=== PATIENT | female | born 1960 | race Caucasian/White ===

== ENCOUNTER 2023-06-13 05:46 | Observation (INO) | payer SELFPAY ==
--- NOTE | 2023-06-13 06:17 | ERPHSYRPT ---
- History of Present Illness Historian: patient Exam Limitations: no limitations Patient Subjective Stated Complaint: "I've been sick for about 3 weeks but the past 3 days has been really bad. I have some pain and I feel weak. I've been vomited a lot today". Triage Nursing Assessment: Pt presents to ER with complaints of generalized weakness, vomiting, and abd pain. States pain is an intermittent ache. Skin is pink, warm, and dry. Respirations are unlabored at this time. Pt states has been sick for about 3 weeks but the past 3 days she's been vomiting so much and hav ing abd pain. Pt is alert and oriented x 3. Unsteady gait. Answers questions appropriately. Abdomen is soft but tender upon exam in upper quads. Timing/Duration: week(s) (3), intermittent, worse (Symptoms worse in the last 3 days) Quality: aching Abdominal Pain Onset Location: generalized abdomen Pain Radiation: no radiation Severity of Pain-Max: moderate Severity of Pain-Current: moderate Modifying Factors: Improves With: vomiting Associated Symptoms: loss of appetite, nausea, vomiting, weakness Previous symptoms: no prior history, no recent treatment Hx Tetanus, Diphtheria Vaccination/Date Given: No Hx Influenza Vaccination/Date Given: No Hx Pneumococcal Vaccination/Date Given: No Immunizations Up to Date: No <TOÑO OTT - Last Filed: 06/13/23 06:41> <CHIARA ACEVEDO - Last Filed: 06/13/23 10:38> - History of Present Illness Time Seen by Provider: 06/13/23 06:05 Physician History: This is a morbidly obese 63-year-old white female patient of Dr. 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 White and also sees a beauty specialist. Patient states that she has been "sick" for 3 weeks. Her symptoms have worsened in the last 3 days. Patient has generalized weakness. She has had vomiting and generalized abdominal pain. She describes the abdominal pain as intermittent achiness. Patient has multiple medical issues including hypertension, arrhythmias, coronary artery disease, rheumatoid arthritis, fibromyalgia, gastroesophageal reflux disease and anxiety. Patient has had a cholecystectomy and appendectomy in the past. (TOÑO OTT) Allergies/Adverse Reactions: celecoxib [From Celebrex] Allergy (Verified 06/13/23 06:04) cephalexin [Cephalexin] Allergy (Verified 06/13/23 06:04) cephalexin monohydrate [From Keflex] Allergy (Verified 06/13/23 06:04) ciprofloxacin [From Cipro] Allergy (Verified 06/13/23 06:04) ciprofloxacin HCl [From Cipro] Allergy (Verified 06/13/23 06:04) ibuprofen [From Motrin] Allergy (Verified 06/13/23 06:04) ketoprofen [From Oruvail] Allergy (Verified 06/13/23 06:04) ketorolac tromethamine [From Toradol] Allergy (Verified 06/13/23 06:04) levofloxacin [From Levaquin] Allergy (Verified 06/13/23 06:04) meloxicam [From Mobic] Allergy (Verified 06/13/23 06:04) methadone [Methadone] Allergy (Verified 06/13/23 06:04) methocarbamol [From Robaxin] Allergy (Verified 06/13/23 06:04) Penicillins Allergy (Verified 06/13/23 06:04) Sulfa (Sulfonamide Antibiotics) [Sulfa(Sulfonamide Antibiotics)] Allergy (Verified 06/13/23 06:04) Home Medications: ALPRAZolam [Xanax] 2 mg PO QID 08/08/16 [History] Gabapentin 400 mg PO QID 08/08/16 [History] Chlorzoxazone [Lorzone] 750 mg PO DAILY 08/25/16 [History] Metoprolol Tartrate 25 mg [Lopressor 25MG Tab] 25 mg PO BID 08/25/16 [History] Travel Risk - International Travel Have you traveled outside of the country in past 3 weeks: No - Coronavirus Screening Are you exhibiting any of the following symptoms?: Yes Symptoms: Vomiting/Diarrhea, Headaches/Body Aches/Fatigue Close contact with a COVID-19 positive Pt in past 14-21 Days: No - Vaccine Status Have you recieved a Covid-19 vaccination: No <TOÑO OTT - Last Filed: 06/13/23 06:41> - Review of Systems Constitutional: Weakness Eyes: No Symptoms Ears, Nose, & Throat: No Symptoms, Throat Swelling Cardiac: No Symptoms Abdominal/Gastrointestinal: Abdominal Pain, Nausea, Vomiting, Appetite Changes Genitourinary Symptoms: No Symptoms Musculoskeletal: Arthralgias, Myalgias Skin: No Symptoms Neurological: No Symptoms Psychological: No Symptoms Endocrine: No Symptoms Hematologic/Lymphatic: No Symptoms Immunological/Allergic: No Symptoms All Other Systems: Reviewed and Negative <TOÑO OTT - Last Filed: 06/13/23 06:41> - Past Medical History Pertinent Past Medical History: Yes Neurological History: Other ENT History: No Pertinent History Cardiac History: Arrhythmia, Coronary Artery Disease, Hypertension, Myocardial Infarction ([place]) Respiratory History: Pneumonia Endocrine Medical History: No Pertinent History Musculoskeletal History: Arthritis, Degenerative Disk Disease, Fibromyalgia, Rheumatoid Arthritis GI Medical History: GERD History: No Pertinent History Psycho-Social History: Anxiety Female Reproductive Disorders: No Pertinent History Other Medical History: cerebral aneurysm. pacemaker - Past Surgical History Past Surgical History: Yes Cardiac: Pacemaker Respiratory: Other Gastrointestinal: Cholecystectomy Genitourinary: No Pertinent History Musculoskeletal: Orthopedic Surgery Female Surgical History: Hysterectomy Other Surgical History: bilat carpal tunnel. 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 pacemaker. right elbow Apr 04 2016 - Social History Smoking Status: Former smoker How long have you smoked: 35 Exposure to second hand smoke: No Alcohol Use: None Drug Use: none Patient Lives Alone: No Significant Family History: no pertinent family hx <TOÑO OTT - Last Filed: 06/13/23 06:41> - Physical Exam General Appearance: mild distress, alert, anxiety, obese Eye Exam: PERRL/EOMI, eyes nml inspection Ears, Nose, Throat Exam: normal ENT inspection, moist mucous membranes Neck Exam: normal inspection, non-tender, supple, full range of motion Respiratory Exam: normal breath sounds, lungs clear, airway intact, No chest tenderness, No respiratory distress Cardiovascular Exam: tachycardia Gastrointestinal/Abdomen Exam: soft, normal bowel sounds, tenderness (Generalized), guarding (Generalized to palpation) Pelvic Exam: not done Rectal Exam: not done Back Exam: normal inspection, normal range of motion, No CVA tenderness, No vertebral tenderness Extremity Exam: normal inspection, normal range of motion, pelvis stable Neurologic Exam: alert, oriented x 3, cooperative, collector of aquarium specimens II-XII nml as tested, normal mood/affect, nml cerebellar function, nml station & gait, sensation nml Skin Exam: normal color, warm, dry Lymphatic Exam: No adenopathy SpO2 Interpretation: normal SpO2: 95 O2 Delivery: Room Air <TOÑO OTT - Last Filed: 06/13/23 06:41> - Nursing Vital Signs Nursing Vital Signs: Initial Vital Signs Temperature 96.6 F 06/13/23 05:53 Pulse Rate 111 H 06/13/23 05:53 Respiratory Rate 18 06/13/23 05:53 Blood Pressure 158/93 06/13/23 05:53 O2 Sat by Pulse Oximetry 95 06/13/23 05:53 Pain Scale Pain Intensity 0 - Course Nursing assessment & vital signs reviewed: Yes <TOÑO OTT - Last Filed: 06/13/23 06:41> - Course EKG Interpreted by Me: RATE (88), Sinus Rhythm, NORMAL AXIS, NORMAL INTERVALS - CT Exams Abdomen/Pelvis CT Interpretation: Tele-radiologist Report (5 mm noncalcified subpleural nodule, fatty liver, bilateral renal cysts, aortoiliac calcifications, osteopenia, spine arthritis) <CHIARA ACEVEDO - Last Filed: 06/13/23 10:38> Ordered Tests: Active Orders 24 hr Category Date Time Status IV Insertion STAT Care 06/13/23 06:29 Active ABDOMEN AND PELVIS W/0 CONTRAS [CT] Stat Exams 06/13/23 06:29 Completed AMYLASE Stat Lab 06/13/23 07:04 Completed BLOOD CULTURE Stat Lab 06/13/23 07:25 Received CBC W DIFF Stat Lab 06/13/23 07:04 Completed CMP Stat Lab 06/13/23 07:04 Completed LIPASE Stat Lab 06/13/23 07:04 Completed Lactic Acid Stat Lab 06/13/23 07:31 Completed Lactic Acid Stat Lab 06/13/23 09:44 Received MONO SCREEN Stat Lab 06/13/23 07:04 Completed Manual Differential NC Stat Lab 06/13/23 07:04 Completed TROPONIN Q4H Lab 06/13/23 07:04 Completed TROPONIN Q4H Lab 06/13/23 10:30 Ordered TROPONIN Q4H Lab 06/13/23 14:30 Ordered UA W/RFX UR CULTURE Stat Lab 06/13/23 07:39 Completed Medication Summary Generic Name Dose Route Start Last Admin Trade Name Freq PRN Reason Stop Dose Admin Sodium Chloride 1,000 mls @ 100 mls/hr 06/13/23 06:30 06/13/23 06:34 Sodium Chloride 0.9% 1000 Ml IV 07/13/23 06:29 100 mls/hr .Q10H MOHSEN Administration Magnesium Sulfate/Dextrose 100 mls @ 100 mls/hr 06/13/23 09:15 06/13/23 09:16 Magnesium 1 Gm / 100 Ml D5w IV 06/13/23 11:14 100 mls/hr Q1H MOHSEN Administration Discontinued Medications Generic Name Dose Route Start Last Admin Trade Name Freq PRN Reason Stop Dose Admin Ondansetron HCl 4 mg 06/13/23 06:29 06/13/23 06:34 Ondansetron Hcl 4 Mg/2 Ml Vial IV 06/13/23 06:30 4 mg STAT ONE Administration Ondansetron HCl Confirm 06/13/23 06:33 Ondansetron Hcl 4 Mg/2 Ml Vial Administered 06/13/23 06:34 Dose 4 mg .ROUTE .STK-MED ONE Pantoprazole Sodium 40 mg 06/13/23 06:29 06/13/23 06:34 Pantoprazole 40 Mg Vial IV 06/13/23 06:30 40 mg STAT ONE Administration Pantoprazole Sodium Confirm 06/13/23 06:33 Pantoprazole 40 Mg Vial Administered 06/13/23 06:34 Dose 40 mg IV .STK-MED ONE Potassium Chloride 40 meq 06/13/23 08:03 06/13/23 09:16 Potassium Chloride Tab 10 Meq Tab PO 06/13/23 08:04 40 meq STAT ONE Administration Potassium Chloride Confirm 06/13/23 09:15 Potassium Chloride Tab 10 Meq Tab Administered 06/13/23 09:16 Dose 40 meq PO .STK-MED ONE Lab/Rad Data: Laboratory Result Diagrams 06/13/23 07:04 06/13/23 07:04 Laboratory Results 06/13/23 06/13/23 06/13/23 Range/Units 07:40 07:39 07:31 WBC (4.0-10.5) x10^3/uL RBC (4.1-5.4) x10^6/uL Hgb (12.0-16.0) g/dL Hct (35-47) % MCV (78-100) fL MCH (26-32) pg MCHC (32-36) g/dL RDW (11.5-14.0) % Plt Count (150-450) x10^3/uL MPV (7.5-11.0) fL Segmented Neutrophils (36.0-66.0) % Band Neutrophils (0.0-2.0) % Lymphocytes (Manual) (24-44) % Monocytes (Manual) (0.0-12.0) % Hypochromia Platelet Estimate (NORMAL) RBC Morphology Sodium (137-145) mmol/L Potassium (3.5-5.1) mmol/L Chloride (98-107) mmol/L Carbon Dioxide (22-30) mmol/L Anion Gap (5-15) MEQ/L BUN (7-17) mg/dL Creatinine (0.52-1.04) mg/dL Estimated GFR ML/MIN Glucose (74-106) mg/dL Lactic Acid 3.4 H (0.4-2.0) Calcium (8.4-10.2) mg/dL Total Bilirubin (0.2-1.3) mg/dL AST (14-36) U/L ALT (0-35) U/L Alkaline Phosphatase (38-126) U/L Troponin I (0.000-0.034) ng/mL Serum Total Protein (6.3-8.2) g/dL Albumin (3.5-5.0) g/dL Amylase (30-110) U/L Lipase (23-300) U/L Urine Color Yellow (Yellow) Urine Appearance Clear (Clear) Urine pH 6.0 (4.6-8.0) Ur Specific [place] 1.020 (1.005-1.030) Urine Protein 30 (Negative) Urine Glucose (UA) Negative (Negative) mg/dL Urine Ketones >=160 A (Negative) Urine Blood Negative (Negative) Urine Nitrite Negative (Negative) Urine Bilirubin Negative (Negative) Urine Urobilinogen 0.2 (0.2) mg/dL Ur Leukocyte Esterase Negative (Negative) U Hyaline Cast (Auto) 3-5 A (0-2) /LPF Urine Microscopic RBC 0-2 (0-5) /HPF Urine Microscopic WBC 0-2 (0-5) /HPF Ur Epithelial Cells None Seen (None Seen) /HPF Urine Bacteria None Seen (None Seen) /HPF Urine Culture Reflexed NO (NO) Monoscreen (NEGATIVE) Influenza Type A Ag NEGATIVE (NEGATIVE) Influenza Type B Ag NEGATIVE (NEGATIVE) RSV (PCR) NEGATIVE (NEGATIVE) SARS-CoV-2 (PCR) NEGATIVE (NEGATIVE) 06/13/23 06/13/23 06/13/23 Range/Units 07:04 07:04 07:04 WBC (4.0-10.5) x10^3/uL RBC (4.1-5.4) x10^6/uL Hgb (12.0-16.0) g/dL Hct (35-47) % MCV (78-100) fL MCH (26-32) pg MCHC (32-36) g/dL RDW (11.5-14.0) % Plt Count (150-450) x10^3/uL MPV (7.5-11.0) fL Segmented Neutrophils (36.0-66.0) % Band Neutrophils (0.0-2.0) % Lymphocytes (Manual) (24-44) % Monocytes (Manual) (0.0-12.0) % Hypochromia Platelet Estimate (NORMAL) RBC Morphology Sodium 139 (137-145) mmol/L Potassium 3.0 L* (3.5-5.1) mmol/L Chloride 94 L (98-107) mmol/L Carbon Dioxide 15 L* (22-30) mmol/L Anion Gap 31.8 H (5-15) MEQ/L BUN 32 H (7-17) mg/dL Creatinine 1.43 H (0.52-1.04) mg/dL Estimated GFR 39.5 ML/MIN Glucose 97 (74-106) mg/dL Lactic Acid (0.4-2.0) Calcium 9.3 (8.4-10.2) mg/dL Total Bilirubin 0.70 (0.2-1.3) mg/dL AST 22 (14-36) U/L ALT 16 (0-35) U/L Alkaline Phosphatase 109 (38-126) U/L Troponin I < 0.012 (0.000-0.034) ng/mL Serum Total Protein 7.8 (6.3-8.2) g/dL Albumin 4.6 (3.5-5.0) g/dL Amylase 87 (30-110) U/L Lipase 229 (23-300) U/L Urine Color (Yellow) Urine Appearance (Clear) Urine pH (4.6-8.0) Ur Specific [place] (1.005-1.030) Urine Protein (Negative) Urine Glucose (UA) (Negative) mg/dL Urine Ketones (Negative) Urine Blood (Negative) Urine Nitrite (Negative) Urine Bilirubin (Negative) Urine Urobilinogen (0.2) mg/dL Ur Leukocyte Esterase (Negative) U Hyaline Cast (Auto) (0-2) /LPF Urine Microscopic RBC (0-5) /HPF Urine Microscopic WBC (0-5) /HPF Ur Epithelial Cells (None Seen) /HPF Urine Bacteria (None Seen) /HPF Urine Culture Reflexed (NO) Monoscreen NEGATIVE (NEGATIVE) Influenza Type A Ag (NEGATIVE) Influenza Type B Ag (NEGATIVE) RSV (PCR) (NEGATIVE) SARS-CoV-2 (PCR) (NEGATIVE) 06/13/23 Range/Units 07:04 WBC 17.3 H (4.0-10.5) x10^3/uL RBC 5.31 (4.1-5.4) x10^6/uL Hgb 13.7 (12.0-16.0) g/dL Hct 46.0 (35-47) % MCV 86.6 (78-100) fL MCH 25.8 L (26-32) pg MCHC 29.8 L (32-36) g/dL RDW 16.2 H (11.5-14.0) % Plt Count 483 H (150-450) x10^3/uL MPV 9.7 (7.5-11.0) fL Segmented Neutrophils 89 H (36.0-66.0) % Band Neutrophils 1 (0.0-2.0) % Lymphocytes (Manual) 8 L (24-44) % Monocytes (Manual) 2 (0.0-12.0) % Hypochromia 1+ Platelet Estimate NORMAL (NORMAL) RBC Morphology NORMAL Sodium (137-145) mmol/L Potassium (3.5-5.1) mmol/L Chloride (98-107) mmol/L Carbon Dioxide (22-30) mmol/L Anion Gap (5-15) MEQ/L BUN (7-17) mg/dL Creatinine (0.52-1.04) mg/dL Estimated GFR ML/MIN Glucose (74-106) mg/dL Lactic Acid (0.4-2.0) Calcium (8.4-10.2) mg/dL Total Bilirubin (0.2-1.3) mg/dL AST (14-36) U/L ALT (0-35) U/L Alkaline Phosphatase (38-126) U/L Troponin I (0.000-0.034) ng/mL Serum Total Protein (6.3-8.2) g/dL Albumin (3.5-5.0) g/dL Amylase (30-110) U/L Lipase (23-300) U/L Urine Color (Yellow) Urine Appearance (Clear) Urine pH (4.6-8.0) Ur Specific [place] (1.005-1.030) Urine Protein (Negative) Urine Glucose (UA) (Negative) mg/dL Urine Ketones (Negative) Urine Blood (Negative) Urine Nitrite (Negative) Urine Bilirubin (Negative) Urine Urobilinogen (0.2) mg/dL Ur Leukocyte Esterase (Negative) U Hyaline Cast (Auto) (0-2) /LPF Urine Microscopic RBC (0-5) /HPF Urine Microscopic WBC (0-5) /HPF Ur Epithelial Cells (None Seen) /HPF Urine Bacteria (None Seen) /HPF Urine Culture Reflexed (NO) Monoscreen (NEGATIVE) Influenza Type A Ag (NEGATIVE) Influenza Type B Ag (NEGATIVE) RSV (PCR) (NEGATIVE) SARS-CoV-2 (PCR) (NEGATIVE) <TOÑO OTT - Last Filed: 06/13/23 06:41> - Progress Progress: improved Will see patient in: hospital (observation) Counseled pt/family regarding: lab results, diagnosis, rad results <CHIARA ACEVEDO - Last Filed: 06/13/23 10:38> - Progress Progress Note: 06/13/23 06:26 This patient's medical issue is 1 of moderate complexity. The level complexity in the work-up performed is based on review of the patient's past medical history, review the patient's medication list, review of the patient's drug allergy list, history of present illness and physical findings on examination. Work-up includes placement of intravenous line, infusion normal saline solution, infusion of Protonix, infusion of Zofran, twelve-lead EKG, troponin level, CBC, CMP, amylase and lipase level, and CT scan of the abdomen pelvis without contrast. We will also order COVID swabs/viral swabs and order a Monospot test. 06/13/23 06:28 06/13/23 06:41 Transfer of care this patient will occur at 7 AM at shift change. Dr. Chiara Acevedo will assume care of this patient. I will advise him on the patient's past medical history, presenting complaint and the work-up results that are pending. He will make final disposition. (TOÑO OTT) Patient initially seen by Dr. Ott. Patient endorsed to Dr. Acevedo at approximately [address] Acevedo advised to follow-up on pending lab studies and imaging Patient is a 63-year-old female presents to our ED for evaluation of nausea vomiting x3 days. Patient complains of generalized weakness and abdominal pain. CT scan of the abdomen pelvis reveals a 5 mm noncalcified subpleural nodule, fatty liver bilateral renal cysts aortoiliac calcifications osteopenia and spine arthritis. CBC reveals a leukocytosis of 17,000. The cause of the leukocytosis is not yet clear. Patient has no other manifestations of infection. She is not febrile. No significant abnormalities observed on CT abdomen pelvis. Patient has a thrombocytosis of 483. Potassium is 3.0. Hypokalemia likely secondary to vomiting. Acute renal injury observed. BUN 32 creatinine 1.43. This is significantly off of patient's baseline. Anion gap acidosis observed with a bicarb of 15. Previous physician ordered blood cultures,. Results pending. COVID test negative. Lipase within normal limits. Monospot negative. Urinalysis negative for urinary tract infection. Specific gravity elevated. This is in line with dehydration. Again likely stemming from protracted vomiting. Patient received IV fluids and Zofran. Nausea vomiting resolved. Patient tolerated oral potassium replacement. Magnesium IV administered. An order for IV potassium was entered. Staff currently preparing IV infusion of potassium. Patient will require hospitalization. She states she is too weak to go home. In light of our objective findings we can justify admission for further evaluation and treatment. Complexity of problems addressed is moderate acute complicated No critical care time Complex of data reviewed and analyzed extensive. Test ordered reviewed and analyzed. Clinical correlation made between laboratory findings/ imaging studies and history and physical exam. Case and plan of care discussed with hospitalist. Hospitalist accepts admission to observation. Risk of complication and or risk morbidity/mortality of patient management is high. Patient will require hospitalization for further evaluation and treatme nt. Patient will be admitted. Patient agrees to admission to [facility] for further evaluation and treatment. Vital stable. Time spent to admit patient is approximately 15 to 20 minutes. Plan of care established for shared decision making. at bedside. They voiced no other complaints or concerns at this time. Portions of this note were created with voice recognition technology. There may be grammatical, spelling, punctuation or sound alike errors 06/13/23 09:37 accepts admission at 10:36 AM. 06/13/23 10:37 (CHIARA ACEVEDO) Medical Desision Making - Independent Historian Additional History obtained from: Family - Diagnostic Testing Diagnostic test were ordered, analyzed, and reviewed by me: No - Risk of complications The pt has a mod risk of morbidity or mortality based on: Need for prescription drug management <TOÑO OTT - Last Filed: 06/13/23 06:41> <TOÑO OTT - Last Filed: 06/13/23 06:41> - Departure Departure Disposition: Observation Critical Care Time: No <CHIARA ACEVEDO - Last Filed: 06/13/23 10:38> - Departure Clinical Impression: Leukocytosis, Thrombocytosis, Hypokalemia, Metabolic acidosis, High anion gap metabolic acidosis, Acute renal injury, Dehydration, Ketonuria, Lung nodule, Fatty liver, Bilateral renal cysts, Aortoiliac calcifications, Osteopenia, Arthritis of spine, Vomiting, Generalized weakness, Abdominal pain Condition: Stable Referrals: PRICE SIMS [Primary Care Provider] - Follow up/PCP as directed
[2023-06-13] MEDS ORDERED: Zofran 4 MG/2 ML VIAL IV ONE (06:29)
[2023-06-13] MEDS ORDERED: PROTONIX 40 MG IV IV ONE ×2 (06:29→06:33)
[2023-06-13] MEDS ORDERED: Sodium Chloride 0.9% 1000 ML 1,000 ML IV SCH (06:30)
[2023-06-13] MEDS ORDERED: Zofran 4 MG/2 ML VIAL ONE (06:33)
[2023-06-13 07:17] LABS: Hemoglobin 13.7 g/dL (12.0-16.0); Mean Cell Volume 86.6 fL (78-100); Mean Corpuscular Hemoglobin 25.8 pg (26-32); Mean Corpuscular Hgb Concent. 29.8 g/dL (32-36); Mean Platelet Volume 9.7 fL (7.5-11.0); Platelet Count 483 x10^3/uL (150-450); Red Blood Count 5.31 x10^6/uL (4.1-5.4); Red Cell Distribution Width 16.2 % (11.5-14.0); White Blood Count 17.3 x10^3/uL (4.0-10.5)
[2023-06-13 07:54] LABS: ALBUMIN 4.6 g/dL (3.5-5.0); ANION GAP 31.8 MEQ/L (5-15); BILIRUBIN,TOTAL 0.7 mg/dL (0.2-1.3); Calcium 9.3 mg/dL (8.4-10.2); Creatinine 1 1.43 mg/dL (0.52-1.04); EST GLOMERULAR FILTRATION RATE 39.5 ML/MIN; Total Protein 7.8 g/dL (6.3-8.2)
[2023-06-13 08:03] LABS: BAND 1 % (0.0-2.0); Hypochromia 1+; Lymphocytes 8 % (24-44); Monocyte 2 % (0.0-12.0); Neutrophils 89 % (36.0-66.0); Platelet Estimate NORMAL (NORMAL); Total Cells Counted 100
[2023-06-13] MEDS ORDERED: Klor Con PO ONE ×3 (08:03→17:50)
[2023-06-13 08:04] LABS: Appearance Clear (Clear); Bacteria None Seen /HPF (None Seen); Bilirubin Negative (Negative); Blood Negative (Negative); Epithelial Cells None Seen /HPF (None Seen); Glucose, Urine Negative (Negative); Ketones >=160 (Negative); Leukocyte Esterase Negative (Negative); Nitrite Negative (Negative); Protein,Urine Dip 30 (Negative); RBC 0-2 /HPF (0-5); Urobilinogen 0.2 mg/dL (0.2); WBC 0-2 /HPF (0-5)
[2023-06-13 08:18] LABS: INFLUENZA A NEGATIVE (NEGATIVE); INFLUENZA B NEGATIVE (NEGATIVE); RESPIRATORY SYNCTIAL VIRUS NEGATIVE (NEGATIVE); SARS-CoV-2 Xpert Express NEGATIVE (NEGATIVE)
[2023-06-13 08:24] LABS: ADD URINE CULTURE? NO (NO)
--- NOTE | 2023-06-13 08:47 | XRAY ---
Indication: Abdomen pain and vomiting. Multiple contiguous axial images obtained through the abdomen and pelvis without contrast. Comparison: CTA abdomen/pelvis November 13, 2020 Study slightly degraded by respiration artifact. Left lower lobe demonstrates stable 5 mm noncalcified subpleural nodule favored to be benign given stability over the years. No infiltrate or effusion. Heart not enlarged with stable pacemaker lead. Noncontrasted stomach and bowel loops appear nonobstructed. Appendix not seen. Previous cholecystectomy and hysterectomy. Stable fatty liver and tiny bilateral renal cysts. No free fluid/air. Remaining liver, pancreas, spleen, adrenal glands, kidneys, ureters, and bladder are unremarkable for noncontrast exam. Moderate scattered aortoiliac calcifications without AAA. Osseous structures intact with osteopenia and mild/moderate degenerative changes throughout the visualized spine greatest at L4-L5. Impression: 1. Respiration artifact. 2. Again chronic findings including benign left lower lobe noncalcified micronodule, bilateral renal cysts, fatty liver, chronic bony findings, and arteriosclerotic disease. 3. No new or acute intra-abdominal/pelvic abnormalities on this noncontrast exam.
[2023-06-13] MEDS: Magnesium 1 Gm / 100 Ml D5W*** 100 ML IV SCH ×2 (09:16→11:31)
[2023-06-13] MEDS ORDERED: Xylocaine-Mpf 2% 5 Ml Vial ONE (11:35)
--- NOTE | 2023-06-13 13:02 | PCM.HP ---
History of Present Illness - Chief Complaint Chief Complaint: N/V Date: 06/13/23 History of Present Illness: is a 63 year old female. Patient has multiple medical issues including arrhythmias, coronary artery disease, pacemaker, MD rheumatoid arthritis, fibrom yalgia, gastroesophageal reflux disease, and anxiety. Patient has had a cholecystectomy and appendectomy in the past. This is a morbidly obese 63-year-old white female patient of Dr. French Wolf who also sees assistant manager pt Dr. White and also sees a rewinder operator helper. Patient states that she has been "sick" for 3 weeks. Her symptoms have worsened in the last 3 days. Patient has generalized weakness. She has had vomiting and generalized abdominal pain. She has chronic diarrhea, denies blood or mucus in stools. She describes the abdominal pain as intermittent achiness from vomiting this morning. CT abd pelvis showed no acute findings. Lactic acid elevated in ER IV fluids gave- will recheck. Continue IV fluids. Add zofran for nausea. She has acute on chronic renal failure. She denies CP, SOB. - Review of Systems Constitutional: No Fever, No Chills Eyes: No Symptoms Ears, Nose, & Throat: No Symptoms Respiratory: No Cough, No Short Of Breath Cardiac: No Chest Pain, No Edema, No Syncope Abdominal/Gastrointestinal: Abdominal Pain, Nausea, Vomiting, Diarrhea Genitourinary Symptoms: No Dysuria Musculoskeletal: No Back Pain, No Neck Pain Skin: Dryness, No Rash Neurological: No Dizziness, No Focal Weakness, No Sensory Changes Psychological: No Symptoms Endocrine: No Symptoms Hematologic/Lymphatic: No Symptoms Immunological/Allergic: No Symptoms Medications & Allergies Home Medications: Home Medication List ALPRAZolam [Xanax] 2 mg PO QID 08/08/16 [History Confirmed 06/13/23] Gabapentin 400 mg PO QID 08/08/16 [History Confirmed 06/13/23] Chlorzoxazone [Lorzone] 750 mg PO DAILY 08/25/16 [History Confirmed 06/13/23] Metoprolol Tartrate 25 mg [Lopressor 25MG Tab] 25 mg PO BID 08/25/16 [History Confirmed 06/13/23] Allergies/Adverse Reactions: Allergies Allergy/AdvReac Type Severity Reaction Status Date / Time celecoxib [From Celebrex] Allergy Verified 06/13/23 06:04 cephalexin [Cephalexin] Allergy Verified 06/13/23 06:04 cephalexin monohydrate Allergy Verified 06/13/23 06:04 [From Keflex] ciprofloxacin [From Cipro] Allergy Verified 06/13/23 06:04 ciprofloxacin HCl Allergy Verified 06/13/23 06:04 [From Cipro] ibuprofen [From Motrin] Allergy Verified 06/13/23 06:04 ketoprofen [From Oruvail] Allergy Verified 06/13/23 06:04 ketorolac tromethamine Allergy Verified 06/13/23 06:04 [From Toradol] levofloxacin [From Levaquin] Allergy Verified 06/13/23 06:04 meloxicam [From Mobic] Allergy Verified 06/13/23 06:04 methadone [Methadone] Allergy Verified 06/13/23 06:04 methocarbamol [From Robaxin] Allergy Verified 06/13/23 06:04 Penicillins Allergy Verified 06/13/23 06:04 Sulfa (Sulfonamide Allergy Verified 06/13/23 06:04 Antibiotics) [Sulfa(Sulfonamide Antibiotics)] - Past Medical History Past Medical History: Yes Neurological History: Other ENT History: No Pertinent History Cardiac History: Arrhythmia, Coronary Artery Disease, Hypertension, Myocardial Infarction (MD) Respiratory History: Pneumonia Endocrine Medical History: No Pertinent History Musculoskelatal History: Arthritis, Degenerative Disk Disease, Fibromyalgia, Rheumatoid Arthritis GI Medical History: GERD History: No Pertinent History Pyscho-Social History: Anxiety Reproductive Disorders: No Pertinent History Comment: cerebral aneurysm. pacemaker - Past Surgical History Past Surgical History: Yes Cardiac History: Pacemaker Respiratory Surgery: Other GI Surgical History: Cholecystectomy Genitourinary Surgical Hx: No Pertinent History Musculskeletal Surgical Hx: Orthopedic Surgery Female Surgical History: Hysterectomy Other Surgical History: bilat carpal tunnel. 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 pacemaker. right elbow Apr 04 2016 - Social History Smoking Status: Former smoker How long have you smoked: 35 Exposure to second hand smoke: No Alcohol: Daily Drug Use: none Significant Family History: no pertinent family hx - Physical Exam Vital Signs: Vital Signs - 24 hr Temp Pulse Resp BP BP Pulse Ox 06/13/23 09:00 17 111/51 98 06/13/23 08:00 100/57 98 06/13/23 07:42 87 18 127/85 94 L 10/10/23 07:31 127/85 97 06/13/23 06:42 95 06/13/23 05:53 96.6 F 111 H 18 158/93 95 General Appearance: no apparent distress, alert Neurologic Exam: alert, oriented x 3, cooperative, normal mood/affect, nml cerebellar function, nml station & gait, sensation nml, No motor deficits Eye Exam: PERRL/EOMI, eyes nml inspection Ears, Nose, Throat Exam: normal ENT inspection, TMs normal, pharynx normal, moist mucous membranes Neck Exam: normal inspection, non-tender, supple, full range of motion Respiratory Exam: normal breath sounds, lungs clear, No respiratory distress Cardiovascular Exam: regular rate/rhythm, normal heart sounds, normal peripheral pulses Gastrointestinal/Abdomen Exam: soft, normal bowel sounds, tenderness (LUQ with palpation), No mass Back Exam: normal inspection, normal range of motion, No CVA tenderness, No vertebral tenderness Extremity Exam: normal inspection, normal range of motion, pelvis stable Skin Exam: normal color, warm, dry, No rash Lymphatic Exam: No adenopathy Results - Labs Lab/Micro Results: Lab Results-Last 24 Hours 06/13/23 06/13/23 06/13/23 Range/Units 07:04 07:04 07:04 WBC 17.3 H (4.0-10.5) x10^3/uL RBC 5.31 (4.1-5.4) x10^6/uL Hgb 13.7 (12.0-16.0) g/dL Hct 46.0 (35-47) % MCV 86.6 (78-100) fL MCH 25.8 L (26-32) pg MCHC 29.8 L (32-36) g/dL RDW 16.2 H (11.5-14.0) % Plt Count 483 H (150-450) x10^3/uL MPV 9.7 (7.5-11.0) fL Segmented Neutrophils 89 H (36.0-66.0) % Band Neutrophils 1 (0.0-2.0) % Lymphocytes (Manual) 8 L (24-44) % Monocytes (Manual) 2 (0.0-12.0) % Hypochromia 1+ Platelet Estimate NORMAL (NORMAL) RBC Morphology NORMAL Sodium 139 (137-145) mmol/L Potassium 3.0 L* (3.5-5.1) mmol/L Chloride 94 L (98-107) mmol/L Carbon Dioxide 15 L* (22-30) mmol/L Anion Gap 31.8 H (5-15) MEQ/L BUN 32 H (7-17) mg/dL Creatinine 1.43 H (0.52-1.04) mg/dL Estimated GFR 39.5 ML/MIN Glucose 97 (74-106) mg/dL Lactic Acid (0.4-2.0) Calcium 9.3 (8.4-10.2) mg/dL Total Bilirubin 0.70 (0.2-1.3) mg/dL AST 22 (14-36) U/L ALT 16 (0-35) U/L Alkaline Phosphatase 109 (38-126) U/L Troponin I < 0.012 (0.000-0.034) ng/mL Serum Total Protein 7.8 (6.3-8.2) g/dL Albumin 4.6 (3.5-5.0) g/dL Amylase 87 (30-110) U/L Lipase 229 (23-300) U/L Urine Color (Yellow) Urine Appearance (Clear) Urine pH (4.6-8.0) Ur Specific Cash (1.005-1.030) Urine Protein (Negative) Urine Glucose (UA) (Negative) mg/dL Urine Ketones (Negative) Urine Blood (Negative) Urine Nitrite (Negative) Urine Bilirubin (Negative) Urine Urobilinogen (0.2) mg/dL Ur Leukocyte Esterase (Negative) U Hyaline Cast (Auto) (0-2) /LPF Urine Microscopic RBC (0-5) /HPF Urine Microscopic WBC (0-5) /HPF Ur Epithelial Cells (None Seen) /HPF Urine Bacteria (None Seen) /HPF Urine Culture Reflexed (NO) Monoscreen (NEGATIVE) Influenza Type A Ag (NEGATIVE) Influenza Type B Ag (NEGATIVE) RSV (PCR) (NEGATIVE) SARS-CoV-2 (PCR) (NEGATIVE) 06/13/23 06/13/23 06/13/23 Range/Units 07:04 07:31 07:39 WBC (4.0-10.5) x10^3/uL RBC (4.1-5.4) x10^6/uL Hgb (12.0-16.0) g/dL Hct (35-47) % MCV (78-100) fL MCH (26-32) pg MCHC (32-36) g/dL RDW (11.5-14.0) % Plt Count (150-450) x10^3/uL MPV (7.5-11.0) fL Segmented Neutrophils (36.0-66.0) % Band Neutrophils (0.0-2.0) % Lymphocytes (Manual) (24-44) % Monocytes (Manual) (0.0-12.0) % Hypochromia Platelet Estimate (NORMAL) RBC Morphology Sodium (137-145) mmol/L Potassium (3.5-5.1) mmol/L Chloride (98-107) mmol/L Carbon Dioxide (22-30) mmol/L Anion Gap (5-15) MEQ/L BUN (7-17) mg/dL Creatinine (0.52-1.04) mg/dL Estimated GFR ML/MIN Glucose (74-106) mg/dL Lactic Acid 3.4 H (0.4-2.0) Calcium (8.4-10.2) mg/dL Total Bilirubin (0.2-1.3) mg/dL AST (14-36) U/L ALT (0-35) U/L Alkaline Phosphatase (38-126) U/L Troponin I (0.000-0.034) ng/mL Serum Total Protein (6.3-8.2) g/dL Albumin (3.5-5.0) g/dL Amylase (30-110) U/L Lipase (23-300) U/L Urine Color Yellow (Yellow) Urine Appearance Clear (Clear) Urine pH 6.0 (4.6-8.0) Ur Specific Cash 1.020 (1.005-1.030) Urine Protein 30 (Negative) Urine Glucose (UA) Negative (Negative) mg/dL Urine Ketones >=160 A (Negative) Urine Blood Negative (Negative) Urine Nitrite Negative (Negative) Urine Bilirubin Negative (Negative) Urine Urobilinogen 0.2 (0.2) mg/dL Ur Leukocyte Esterase Negative (Negative) U Hyaline Cast (Auto) 3-5 A (0-2) /LPF Urine Microscopic RBC 0-2 (0-5) /HPF Urine Microscopic WBC 0-2 (0-5) /HPF Ur Epithelial Cells None Seen (None Seen) /HPF Urine Bacteria None Seen (None Seen) /HPF Urine Culture Reflexed NO (NO) Monoscreen NEGATIVE (NEGATIVE) Influenza Type A Ag (NEGATIVE) Influenza Type B Ag (NEGATIVE) RSV (PCR) (NEGATIVE) SARS-CoV-2 (PCR) (NEGATIVE) 06/13/23 06/13/23 Range/Units 07:40 09:44 WBC (4.0-10.5) x10^3/uL RBC (4.1-5.4) x10^6/uL Hgb (12.0-16.0) g/dL Hct (35-47) % MCV (78-100) fL MCH (26-32) pg MCHC (32-36) g/dL RDW (11.5-14.0) % Plt Count (150-450) x10^3/uL MPV (7.5-11.0) fL Segmented Neutrophils (36.0-66.0) % Band Neutrophils (0.0-2.0) % Lymphocytes (Manual) (24-44) % Monocytes (Manual) (0.0-12.0) % Hypochromia Platelet Estimate (NORMAL) RBC Morphology Sodium (137-145) mmol/L Potassium (3.5-5.1) mmol/L Chloride (98-107) mmol/L Carbon Dioxide (22-30) mmol/L Anion Gap (5-15) MEQ/L BUN (7-17) mg/dL Creatinine (0.52-1.04) mg/dL Estimated GFR ML/MIN Glucose (74-106) mg/dL Lactic Acid 2.6 H (0.4-2.0) Calcium (8.4-10.2) mg/dL Total Bilirubin (0.2-1.3) mg/dL AST (14-36) U/L ALT (0-35) U/L Alkaline Phosphatase (38-126) U/L Troponin I (0.000-0.034) ng/mL Serum Total Protein (6.3-8.2) g/dL Albumin (3.5-5.0) g/dL Amylase (30-110) U/L Lipase (23-300) U/L Urine Color (Yellow) Urine Appearance (Clear) Urine pH (4.6-8.0) Ur Specific Cash (1.005-1.030) Urine Protein (Negative) Urine Glucose (UA) (Negative) mg/dL Urine Ketones (Negative) Urine Blood (Negative) Urine Nitrite (Negative) Urine Bilirubin (Negative) Urine Urobilinogen (0.2) mg/dL Ur Leukocyte Esterase (Negative) U Hyaline Cast (Auto) (0-2) /LPF Urine Microscopic RBC (0-5) /HPF Urine Microscopic WBC (0-5) /HPF Ur Epithelial Cells (None Seen) /HPF Urine Bacteria (None Seen) /HPF Urine Culture Reflexed (NO) Monoscreen (NEGATIVE) Influenza Type A Ag NEGATIVE (NEGATIVE) Influenza Type B Ag NEGATIVE (NEGATIVE) RSV (PCR) NEGATIVE (NEGATIVE) SARS-CoV-2 (PCR) NEGATIVE (NEGATIVE) - Radiology Impressions Radiology Exams & Impressions: Radiology Procedures Category Date Time Status ABDOMEN AND PELVIS W/0 CONTRAS [CT] Stat Exams 06/13/23 06:29 Completed Assessment/Plan (1) Lactic acidosis Current Visit: Yes Status: Acute Assessment & Plan: - R/T N/V - IV fluids - LA @ 0731 3.4 - LA @ 0944 2.6 - LA @ 1249 1.9- resolved Code(s): E87.20 - ACIDOSIS, UNSPECIFIED (2) Nausea & vomiting Current Visit: Yes Status: Acute Assessment & Plan: - Zofran PRN - Clear liquid diet Code(s): R11.2 - NAUSEA WITH VOMITING, UNSPECIFIED (3) Dehydration Current Visit: Yes Status: Acute Assessment & Plan: - NS @ 150ml/hr Code(s): E86.0 - DEHYDRATION (4) Chronic diarrhea Current Visit: Yes Status: Acute Assessment & Plan: - Will need to f/u OP for Colonoscopy Code(s): K52.9 - NONINFECTIVE GASTROENTERITIS AND COLITIS, UNSPECIFIED (5) Anxiety Current Visit: Yes Status: Acute Assessment & Plan: - Cont home med Code(s): F41.9 - ANXIETY DISORDER, UNSPECIFIED (6) Abdominal pain Current Visit: Yes Status: Acute Assessment & Plan: -Pt explained this from vomiting - CT abd/pelvis: 06/13 1. Respiration artifact. 2. Again chronic findings including benign left lower lobe noncalcified micronodule, bilateral renal cysts, fatty liver, chronic bony findings, and arteriosclerotic disease. 3. No new or acute intra-abdominal/pelvic abnormalities on this noncontrast exam. - Tylenol for pain Code(s): R10.9 - UNSPECIFIED ABDOMINAL PAIN (7) Leukocytosis Current Visit: Yes Status: Acute Assessment & Plan: - WBC 17.3- Trend - may be acute reaction Code(s): D72.829 - ELEVATED WHITE BLOOD CELL COUNT, UNSPECIFIED (8) Hypokalemia Current Visit: No Status: Resolved Assessment & Plan: - K+ 3.0- replaced in ER - IP lab pending Code(s): E87.6 - HYPOKALEMIA (9) Acute on chronic renal failure Current Visit: Yes Status: Acute Assessment & Plan: - 2:2 N/V/D -IVF - Creat 1.43, BL 1.10 - GFR 39.5, BL 53 - BUN 32 - trend labs VTE: SCD's PPI: Pantoprazole Next of Kin: D/C plan: tomorrow Code(s): N17.9 - ACUTE KIDNEY FAILURE, UNSPECIFIED; N18.9 - CHRONIC KIDNEY DISEASE, UNSPECIFIED
[2023-06-13] MEDS ORDERED: Zofran 4 MG/2 ML VIAL IV PRN (13:32)
[2023-06-13] MEDS ORDERED: TYLENOL 325 MG PO PRN (13:44)
[2023-06-13] MEDS ORDERED: XANAX 1 MG PO SCH (14:00)
[2023-06-13] MEDS ORDERED: ALPRAZOLAM 2 MG PO SCH (17:00)
[2023-06-13] MEDS ORDERED: XANAX 1 MG PO PRN (17:48)
[2023-06-13] MEDS: Sodium Chloride 0.9% 1000 ML 1,000 ML IV SCH ×2 (19:24→19:28)
[2023-06-13] MEDS ORDERED: Merrem IV ONE (21:07)
[2023-06-13] MEDS ORDERED: ZOCOR 20MG ONE (21:07)
[2023-06-13] MEDS ORDERED: DESYREL 50 MG ONE (21:07)
[2023-06-13] MEDS ORDERED: Sodium Chloride 100ML MINI-BAG PLUS 100 ML IV ONE (21:08)
[2023-06-13] MEDS: Protonix 20MG Tablet PO SCH (21:14)
[2023-06-13] MEDS: Neurontin PO SCH (21:21)
[2023-06-13] MEDS: Merrem 1 GM in Sodium Chloride 100ML MINI-BAG PLUS 100 ML IV SCH (21:23)
[2023-06-13] MEDS: NON-FORMULARY ITEM (Atorvastatin Calcium [Atorvastatin Calcium] 20 MG Tablet) PO SCH (21:24)
[2023-06-13] MEDS: NON-FORMULARY ITEM (Trazodone Hcl [Trazodone Hcl] 100 MG Tablet) PO SCH (21:24)
[2023-06-13] MEDS: ZOCOR 20MG PO SCH (22:00)
[2023-06-13] MEDS: DESYREL 50 MG PO SCH (22:03)
[2023-06-14] MEDS: Sodium Chloride 0.9% 1000 ML 1,000 ML IV SCH ×3 (02:44→20:32)
[2023-06-14] MEDS: DESYREL 50 MG PO SCH ×2 (05:47→21:32)
[2023-06-14] MEDS: ZOCOR 20MG PO SCH ×2 (05:48→21:47)
[2023-06-14] MEDS ORDERED: VANCOMYCIN 1.5 GRAM/300 ML BAG 1.5 GM/300 ML PIGGYBACK IV ONE (06:15)
[2023-06-14] MEDS: NON-FORMULARY ITEM (Trazodone Hcl [Trazodone Hcl] 100 MG Tablet) PO SCH (06:20)
[2023-06-14] MEDS: NON-FORMULARY ITEM (Atorvastatin Calcium [Atorvastatin Calcium] 20 MG Tablet) PO SCH (06:20)
[2023-06-14 07:54] LABS: Hematocrit 34.5 % (35-47); Hemoglobin 10.4 g/dL (12.0-16.0); Mean Cell Volume 87.3 fL (78-100); Mean Corpuscular Hemoglobin 26.3 pg (26-32); Mean Corpuscular Hgb Concent. 30.1 g/dL (32-36); Mean Platelet Volume 9.5 fL (7.5-11.0); Platelet Count 303 x10^3/uL (150-450); Red Blood Count 3.95 x10^6/uL (4.1-5.4); Red Cell Distribution Width 15.9 % (11.5-14.0); White Blood Count 12.3 x10^3/uL (4.0-10.5)
[2023-06-14 08:12] LABS: ALBUMIN 2.9 g/dL (3.5-5.0); ANION GAP 16.5 MEQ/L (5-15); BILIRUBIN,TOTAL 0.3 mg/dL (0.2-1.3); Calcium 7.4 mg/dL (8.4-10.2); Creatinine 1 1.09 mg/dL (0.52-1.04); EST GLOMERULAR FILTRATION RATE 54.1 ML/MIN; MAGNESIUM 2.1 mg/dL (1.6-2.3); Potassium 3.7 mmol/L (3.5-5.1); Total Protein 5.4 g/dL (6.3-8.2)
[2023-06-14] MEDS ORDERED: PHARMACY DOSING REQUIRED: VANCOMYCIN IV SCH (08:30)
--- NOTE | 2023-06-14 09:59 | PCM.NOTE ---
Date and Time: 06/14/23 0953 Subjective Assessment: 06/13/23 is a 63 year old female. Patient has multiple medical issues including arrhythmias, coronary artery disease, pacemaker, MS rheumatoid arthritis, fibromyalgia, gastroesophageal reflux disease, and anxiety. Patient has had a cholecystectomy and appendectomy in the past. This is a morbidly obese 63-year-old white female patient of Dr. French Wolf who also sees configuration engineer Dr. White and also sees a billing department supervisor. Patient states that she has been "sick" for 3 weeks. Her symptoms have worsened in the last 3 days. Patient has generalized weakness. She has had vomiting and generalized abdominal pain. She has chronic diarrhea, denies blood or mucus in stools. She describes the abdominal pain as intermittent achiness from vomiting this morning. CT abd pelvis showed no acute findings. Lactic acid elevated in ER IV fluids gave- will recheck. Continue IV fluids. Add zofran for nausea. She has acute on chronic renal failure. She denies CP, SOB. 06/14/23 Pt resting in bed. She had some N/V overnight. She is feeling better this morning and denies nausea. She was able to eat some jello this morning without vomiting. HORACIO improved. Hypokalemia resolved. Lactic acidosis resolved. She was having difficulty urinating last night and a gibson was placed with 350 out. She is requesting this to be removed today. D/C order placed. Leukocytosis has improved. one blood culture came back with gram negative rods. The other is negative. Appears to be contamination but Vancomycin and Merrem started by validation specialist physician. Stool culture and c-dif sent for further eval of chronic diarrhea. Pt denies CP, SOB, abd. pain, N/V today. Pt has no insurance so if she needs to be sent home on meds they will need to be affordable. Case management aware. - Review of Systems Constitutional: No Fever, No Chills Eyes: No Symptoms Ears, Nose, & Throat: No Symptoms Respiratory: No Cough, No Short Of Breath Cardiac: No Chest Pain, No Edema, No Syncope Abdominal/Gastrointestinal: No Abdominal Pain, No Nausea, No Vomiting, No Diarrhea Genitourinary Symptoms: No Dysuria Musculoskeletal: No Back Pain, No Neck Pain Skin: No Rash Neurological: No Dizziness, No Focal Weakness, No Sensory Changes Psychological: No Symptoms Endocrine: No Symptoms Hematologic/Lymphatic: No Symptoms Immunological/Allergic: No Symptoms Objective Exam General Appearance: no apparent distress, alert Neurologic Exam: alert, oriented x 3, cooperative, normal mood/affect, nml cerebellar function, sensation nml, No motor deficits Skin Exam: normal color, warm, dry Wound Assessment: Skin/Wound Assessment Wound/Incision Assessment Start: 06/13/23 22:15 Text: Status: Active Freq: Q6H Protocol: Document 06/14/23 04:12 AR (Rec: 06/14/23 04:12 AR [id number]) Wound Photo Photo Taken No Eye Exam: PERRL, EOMI, eyes nml inspection Ears, Nose, Throat Exam: normal ENT inspection, pharynx normal, moist mucous membranes Neck Exam: normal inspection, non-tender, supple, full range of motion Respiratory Exam: normal breath sounds, lungs clear, No respiratory distress Cardiovascular Exam: regular rate/rhythm, normal heart sounds Gastrointestinal/Abdomen Exam: soft, No tenderness, No mass Extremity Exam: normal inspection, normal range of motion Back Exam: normal inspection, normal range of motion, No CVA tenderness, No vertebral tenderness Pelvic Exam: deferred Rectal Exam: deferred OBJECTIVE DATA Vital Signs: Vital Signs - 24 hr Temp Pulse Resp BP Pulse Ox 06/14/23 07:31 96.6 F 75 19 100/52 97 06/14/23 04:00 97.0 F 78 16 111/62 95 06/13/23 23:52 96.8 F 75 15 100/54 95 06/13/23 20:00 96.9 F 121 H 16 119/60 96 06/13/23 13:05 96.7 F 76 17 98 06/13/23 12:27 96.7 F 76 17 98 Pain Assessment - Last Documented Pain Intensity 0 Intake and Output: Intake & Output 06/11/23 06/12/23 06/13/23 06/14/23 11:59 11:59 11:59 11:59 Intake Total 2921 Output Total 350 Balance 2571 Weight 77.9 kg 76.3 kg Lab Results: Lab Results-Last 24 Hours 06/13/23 06/13/23 06/13/23 Range/Units 09:44 12:22 12:49 WBC (4.0-10.5) x10^3/uL RBC (4.1-5.4) x10^6/uL Hgb (12.0-16.0) g/dL Hct (35-47) % MCV (78-100) fL MCH (26-32) pg MCHC (32-36) g/dL RDW (11.5-14.0) % Plt Count (150-450) x10^3/uL MPV (7.5-11.0) fL Sodium (137-145) mmol/L Potassium (3.5-5.1) mmol/L Chloride (98-107) mmol/L Carbon Dioxide (22-30) mmol/L Anion Gap (5-15) MEQ/L BUN (7-17) mg/dL Creatinine (0.52-1.04) mg/dL Estimated GFR ML/MIN Glucose (74-106) mg/dL Lactic Acid 2.6 H 1.9 (0.4-2.0) Calcium (8.4-10.2) mg/dL Magnesium (1.6-2.3) mg/dL Total Bilirubin (0.2-1.3) mg/dL AST (14-36) U/L ALT (0-35) U/L Alkaline Phosphatase (38-126) U/L Troponin I < 0.012 (0.000-0.034) ng/mL Serum Total Protein (6.3-8.2) g/dL Albumin (3.5-5.0) g/dL 06/13/23 06/13/23 06/14/23 Range/Units 13:57 13:57 02:00 WBC (4.0-10.5) x10^3/uL RBC (4.1-5.4) x10^6/uL Hgb (12.0-16.0) g/dL Hct (35-47) % MCV (78-100) fL MCH (26-32) pg MCHC (32-36) g/dL RDW (11.5-14.0) % Plt Count (150-450) x10^3/uL MPV (7.5-11.0) fL Sodium (137-145) mmol/L Potassium 3.1 L 4.3 D (3.5-5.1) mmol/L Chloride (98-107) mmol/L Carbon Dioxide (22-30) mmol/L Anion Gap (5-15) MEQ/L BUN (7-17) mg/dL Creatinine (0.52-1.04) mg/dL Estimated GFR ML/MIN Glucose (74-106) mg/dL Lactic Acid (0.4-2.0) Calcium (8.4-10.2) mg/dL Magnesium (1.6-2.3) mg/dL Total Bilirubin (0.2-1.3) mg/dL AST (14-36) U/L ALT (0-35) U/L Alkaline Phosphatase (38-126) U/L Troponin I < 0.012 (0.000-0.034) ng/mL Serum Total Protein (6.3-8.2) g/dL Albumin (3.5-5.0) g/dL 06/14/23 06/14/23 Range/Units 07:50 07:50 WBC 12.3 H (4.0-10.5) x10^3/uL RBC 3.95 L (4.1-5.4) x10^6/uL Hgb 10.4 L D (12.0-16.0) g/dL Hct 34.5 L (35-47) % MCV 87.3 (78-100) fL MCH 26.3 (26-32) pg MCHC 30.1 L (32-36) g/dL RDW 15.9 H (11.5-14.0) % Plt Count 303 D (150-450) x10^3/uL MPV 9.5 (7.5-11.0) fL Sodium 138 (137-145) mmol/L Potassium 3.7 (3.5-5.1) mmol/L Chloride 105 (98-107) mmol/L Carbon Dioxide 20 L (22-30) mmol/L Anion Gap 16.5 H (5-15) MEQ/L BUN 22 H (7-17) mg/dL Creatinine 1.09 H (0.52-1.04) mg/dL Estimated GFR 54.1 ML/MIN Glucose 93 (74-106) mg/dL Lactic Acid (0.4-2.0) Calcium 7.4 L D (8.4-10.2) mg/dL Magnesium 2.1 (1.6-2.3) mg/dL Total Bilirubin 0.30 (0.2-1.3) mg/dL AST 22 (14-36) U/L ALT 13 (0-35) U/L Alkaline Phosphatase 78 (38-126) U/L Troponin I (0.000-0.034) ng/mL Serum Total Protein 5.4 L (6.3-8.2) g/dL Albumin 2.9 L (3.5-5.0) g/dL Radiology Exams: Radiology Procedures Category Date Time Status ABDOMEN AND PELVIS W/0 CONTRAS [CT] Stat Exams 06/13/23 06:29 Completed Assessment/Plan (1) Lactic acidosis Current Visit: Yes Status: Acute Assessment & Plan: - R/T N/V - IV fluids - LA @ 0731 3.4 - LA @ 0944 2.6 - LA @ 1249 1.9- resolved Code(s): E87.20 - ACIDOSIS, UNSPECIFIED (2) Nausea & vomiting Current Visit: Yes Status: Acute Assessment & Plan: - Zofran PRN - Clear liquid diet Code(s): R11.2 - NAUSEA WITH VOMITING, UNSPECIFIED (3) Dehydration Current Visit: Yes Status: Acute Assessment & Plan: - NS @ 150ml/hr Code(s): E86.0 - DEHYDRATION (4) Chronic diarrhea Current Visit: Yes Status: Acute Assessment & Plan: - Will need to f/u OP for Colonoscopy - Beckie culture, C-diff testing Code(s): K52.9 - NONINFECTIVE GASTROENTERITIS AND COLITIS, UNSPECIFIED (5) Anxiety Current Visit: Yes Status: Acute Assessment & Plan: Cont home med Code(s): F41.9 - ANXIETY DISORDER, UNSPECIFIED (6) Abdominal pain Current Visit: Yes Status: Acute Assessment & Plan: -Pt explained this is from vomiting - CT abd/pelvis: 06/13 1. Respiration artifact. 2. Again chronic findings including benign left lower lobe noncalcified micronodule, bilateral renal cysts, fatty liver, chronic bony findings, and arteriosclerotic disease. 3. No new or acute intra-abdominal/pelvic abnormalities on this noncontrast exam. - Tylenol for pain Code(s): R10.9 - UNSPECIFIED ABDOMINAL PAIN (7) Leukocytosis Current Visit: Yes Status: Acute Assessment & Plan: - WBC 17.3- Trend - may be acute reaction 06/14 - WBC 12.3- improved Code(s): D72.829 - ELEVATED WHITE BLOOD CELL COUNT, UNSPECIFIED (8) Hypokalemia Current Visit: No Status: Resolved Assessment & Plan: - K+ 3.0- replaced in ER 06/14/23 - K+ 4.3- resolved Code(s): E87.6 - HYPOKALEMIA (9) Acute on chronic renal failure Current Visit: Yes Status: Acute Assessment & Plan: - 2:2 N/V/D -IVF - Creat 1.43, BL 1.10 - GFR 39.5, BL - BUN 32 - trend labs 06/14 - improved- near baseline Code(s): N17.9 - ACUTE KIDNEY FAILURE, UNSPECIFIED; N18.9 - CHRONIC KIDNEY DISEASE, UNSPECIFIED (10) Positive blood culture Current Visit: Yes Status: Acute Assessment & Plan: - Pt had 1 + blood culture with gram + rods- appears to be contamination - Will continue to follow for sensitivity - Antibiotics started last night Vancomycin and Merrem. Code(s): R78.81 - BACTEREMIA (11) Acute urinary retention Current Visit: Yes Status: Acute Assessment & Plan: - Gibson placed last night with 350 out 06/14 - DC gibson per pt request- continue to monitor OP VTE: SCD's PPI: Pantoprazole Next of Kin: D/C plan: tomorrow Code(s): R33.8 - OTHER RETENTION OF URINE
[2023-06-14] MEDS: Protonix 20MG Tablet PO SCH ×2 (10:27→21:32)
[2023-06-14] MEDS: Merrem 1 GM in Sodium Chloride 100ML MINI-BAG PLUS 100 ML IV SCH ×2 (10:27→21:32)
[2023-06-14] MEDS: Neurontin PO SCH (21:32)
[2023-06-14] MEDS ORDERED: DESYREL 50 MG PO SCH (22:00)
[2023-06-14] MEDS ORDERED: ZOCOR 20MG PO SCH (22:00)
[2023-06-15] MEDS ORDERED: VANCOCIN 500 MG VIAL*** 500 MG in Sodium Chloride 100ML MINI-BAG PLUS 100 ML IV SCH ×2
[2023-06-15 05:03] LABS: Hematocrit 38.2 % (35-47); Hemoglobin 10.8 g/dL (12.0-16.0); Mean Cell Volume 91.6 fL (78-100); Mean Corpuscular Hemoglobin 25.9 pg (26-32); Mean Corpuscular Hgb Concent. 28.3 g/dL (32-36); Mean Platelet Volume 10.1 fL (7.5-11.0); Platelet Count 248 x10^3/uL (150-450); Red Blood Count 4.17 x10^6/uL (4.1-5.4); Red Cell Distribution Width 16.6 % (11.5-14.0); White Blood Count 8.7 x10^3/uL (4.0-10.5)
[2023-06-15 05:21] LABS: ALKALINE PHOSPHATASE 87 U/L (38-126); ANION GAP 15.6 MEQ/L (5-15); BLOOD UREA NITROGEN 13 mg/dL (7-17); CHLORIDE 109 mmol/L (98-107); Calcium 7.5 mg/dL (8.4-10.2); Carbon Dioxide 20 mmol/L (22-30); Creatinine 1 0.88 mg/dL (0.52-1.04); EST GLOMERULAR FILTRATION RATE > 60.0 ML/MIN; Glucose 108 mg/dL (74-106); Potassium 3.6 mmol/L (3.5-5.1); SGOT/AST 19 U/L (14-36); SGPT/ALT 13 U/L (0-35); SODIUM 140 mmol/L (137-145); Total Protein 5.4 g/dL (6.3-8.2)
[2023-06-15 05:38] LABS: Slide Review YES
[2023-06-15] MEDS: Sodium Chloride 0.9% 1000 ML 1,000 ML IV SCH (06:16)
[2023-06-15 06:37] VITALS: RESP 16
[2023-06-15] MEDS: Merrem 1 GM in Sodium Chloride 100ML MINI-BAG PLUS 100 ML IV SCH (10:24)
[2023-06-15] MEDS: Protonix 20MG Tablet PO SCH (10:24)
[2023-06-15 11:49] VITALS: BP 133/60; PULSE 61; TEMP 96.3; O2SAT 92
--- NOTE | 2023-06-15 12:47 | PCM.NOTE ---
Date and Time: 06/15/23 1241 Subjective Assessment: 06/13/23 is a 63 year old female. Patient has multiple medical issues including arrhythmias, coronary artery disease, pacemaker, [place] rheumatoid arthritis, fibromyalgia, gastroesophageal reflux disease, and anxiety. Patient has had a cholecystectomy and appendectomy in the past. This is a morbidly obese 63-year-old white female patient of Dr. French Wolf who also sees j2ee java developer Dr. White and also sees a control room technician. Patient states that she has been "sick" for 3 weeks. Her symptoms have worsened in the last 3 days. Patient has generalized weakness. She has had vomiting and generalized abdominal pain. She has chronic diarrhea, denies blood or mucus in stools. She describes the abdominal pain as intermittent achiness from vomiting this morning. CT abd pelvis showed no acute findings. Lactic acid elevated in ER IV fluids gave- will recheck. Continue IV fluids. Add zofran for nausea. She has acute on chronic renal failure. She denies CP, SOB. 06/14/23 Pt resting in bed. She had some N/V overnight. She is feeling better this morning and denies nausea. She was able to eat some jello this morning without vomiting. HORACIO improved. Hypokalemia resolved. Lactic acidosis resolved. She was having difficulty urinating last night and a gibson was placed with 350 out. She is requesting this to be removed today. D/C order placed. Leukocytosis has improved. one blood culture came back with gram negative rods. The other is negative. Appears to be contamination but Vancomycin and Merrem started by final armature tester physician. Stool culture and c-dif sent for further eval of chronic diarrhea. Pt denies CP, SOB, abd. pain, N/V today. Pt has no insurance so if she needs to be sent home on meds they will need to be affordable. Case management aware. 06/15/23 Pt resting in bed. She explains she she has been up since 2 am and is tired. She is c/o right ear being clogged. Used otoscope to evaluate and there is no obstruction. Started Flonase for sxs. The one blood culture that was + was shown to be contaminated. Stopped antibiotics. She is feeling better but still weak. Goal is for her to work with PT and sit up in the chair today. Plan is to d/c tomorrow. She denies CP, SOB, Abd. pain, N/V/D. - Review of Systems Constitutional: No Fever, No Chills Eyes: No Symptoms Ears, Nose, & Throat: No Symptoms, Ear Pain (right ear feels clogged/ pressure) Respiratory: No Cough, No Short Of Breath Cardiac: No Chest Pain, No Edema, No Syncope Abdominal/Gastrointestinal: No Abdominal Pain, No Nausea, No Vomiting, No Diarrhea Genitourinary Symptoms: No Dysuria Musculoskeletal: No Back Pain, No Neck Pain Skin: No Rash Neurological: No Dizziness, No Focal Weakness, No Sensory Changes Psychological: No Symptoms Endocrine: No Symptoms Hematologic/Lymphatic: No Symptoms Immunological/Allergic: No Symptoms Objective Exam General Appearance: no apparent distress, alert Neurologic Exam: alert, oriented x 3, cooperative, normal mood/affect, nml cerebellar function, sensation nml, No motor deficits Skin Exam: normal color, warm, dry Eye Exam: PERRL, EOMI, eyes nml inspection Ears, Nose, Throat Exam: normal ENT inspection, pharynx normal, moist mucous membranes Neck Exam: normal inspection, non-tender, supple, full range of motion Respiratory Exam: normal breath sounds, lungs clear, No respiratory distress Cardiovascular Exam: regular rate/rhythm, normal heart sounds Gastrointestinal/Abdomen Exam: soft, No tenderness, No mass Extremity Exam: normal inspection, normal range of motion Back Exam: normal inspection, normal range of motion, No CVA tenderness, No vertebral tenderness Pelvic Exam: deferred Rectal Exam: deferred OBJECTIVE DATA Vital Signs: Vital Signs - 24 hr Temp Pulse Resp BP Pulse Ox 06/15/23 11:49 96.3 F 61 16 133/60 92 L 06/15/23 06:36 97.3 F 69 16 114/58 96 06/15/23 04:00 97.2 F 75 20 132/69 94 L 06/15/23 00:00 97.2 F 82 18 110/55 95 06/14/23 19:56 97.2 F 84 18 112/54 96 06/14/23 16:00 97.2 F 77 16 121/58 96 06/14/23 13:05 97 Pain Assessment - Last Documented Pain Intensity 0 Intake and Output: Intake & Output 06/13/23 06/14/23 06/15/23 06/16/23 11:59 11:59 11:59 11:59 Intake Total 2921 280 Output Total 625 450 Balance 2296 -170 Weight 77.9 kg 76.3 kg Lab Results: Lab Results-Last 24 Hours 06/15/23 06/15/23 Range/Units 04:57 04:57 WBC 8.7 (4.0-10.5) x10^3/uL RBC 4.17 (4.1-5.4) x10^6/uL Hgb 10.8 L (12.0-16.0) g/dL Hct 38.2 (35-47) % MCV 91.6 (78-100) fL MCH 25.9 L (26-32) pg MCHC 28.3 L (32-36) g/dL RDW 16.6 H (11.5-14.0) % Plt Count 248 (150-450) x10^3/uL MPV 10.1 (7.5-11.0) fL Sodium 140 (137-145) mmol/L Potassium 3.6 (3.5-5.1) mmol/L Chloride 109 H (98-107) mmol/L Carbon Dioxide 20 L (22-30) mmol/L Anion Gap 15.6 H (5-15) MEQ/L BUN 13 (7-17) mg/dL Creatinine 0.88 (0.52-1.04) mg/dL Estimated GFR > 60.0 ML/MIN Glucose 108 H (74-106) mg/dL Calcium 7.5 L (8.4-10.2) mg/dL Total Bilirubin 0.50 (0.2-1.3) mg/dL AST 19 (14-36) U/L ALT 13 (0-35) U/L Alkaline Phosphatase 87 (38-126) U/L Serum Total Protein 5.4 L (6.3-8.2) g/dL Albumin 3.0 L (3.5-5.0) g/dL Slides for Path Review YES Multi-Disciplinary Progress Notes: Multi-Disciplinary Progress Notes 06/15/23 11:52 Case Management Note by Leigh Carpenter S/W PATIENT- SHE CONTINUES TO DENY ANY NEW NEEDS AT TIME OF DC. SHE PLANS TO DC HOME TO HER PLF AT TIME OF DC. SHE DECLINES HHC AT THIS TIME Initialized on 06/15/23 11:52 - END OF NOTE 06/15/23 11:50 Physical Therapy Note by Juan Miguel(L#[id number])Marylin ATTEMPTED P.T. TREATMENT THIS A.M. PT. REFUSING SHE REPORTS SHE "HAS BEEN UP SINCE 1 AM AND NEEDS TO TAKE A NAP FIRST." WILL ATTEMPT AGAIN LATER AND [facility] [place] [place] STAFF TO ATTEMPT WELL. PT. HAS DENIED ANY NEEDS AT D/C. Initialized on 06/15/23 11:50 - END OF NOTE Assessment/Plan (1) Lactic acidosis Current Visit: Yes Status: Acute Assessment & Plan: - R/T N/V - IV fluids - LA @ 0731 3.4 - LA @ 0944 2.6 - LA @ 1249 1.9- resolved Code(s): E87.20 - ACIDOSIS, UNSPECIFIED (2) Nausea & vomiting Current Visit: Yes Status: Acute Assessment & Plan: - Zofran PRN - Clear liquid diet 06/15 - resolved Code(s): R11.2 - NAUSEA WITH VOMITING, UNSPECIFIED (3) Dehydration Current Visit: Yes Status: Acute Assessment & Plan: - NS @ 150ml/hr 06/15 - Pt eating and drinking well- stopped IV fluids Code(s): E86.0 - DEHYDRATION (4) Chronic diarrhea Current Visit: Yes Status: Acute Assessment & Plan: - Will need to f/u OP for Colonoscopy - Stool culture, C-diff testing- pending - she has not had any diarrhea since admission Code(s): K52.9 - NONINFECTIVE GASTROENTERITIS AND COLITIS, UNSPECIFIED (5) Anxiety Current Visit: Yes Status: Acute Assessment & Plan: -Cont home med Code(s): F41.9 - ANXIETY DISORDER, UNSPECIFIED (6) Abdominal pain Current Visit: Yes Status: Acute Assessment & Plan: -Pt explained this is from vomiting - CT abd/pelvis: 06/13 1. Respiration artifact. 2. Again chronic findings including benign left lower lobe noncalcified micronodule, bilateral renal cysts, fatty liver, chronic bony findings, and arteriosclerotic disease. 3. No new or acute intra-abdominal/pelvic abnormalities on this noncontrast exam. - Tylenol for pain Code(s): R10.9 - UNSPECIFIED ABDOMINAL PAIN (7) Leukocytosis Current Visit: Yes Status: Acute Assessment & Plan: - WBC 17.3- Trend - may be acute reaction 06/14 - WBC 12.3- improved 06/15 - resolved Code(s): D72.829 - ELEVATED WHITE BLOOD CELL COUNT, UNSPECIFIED (8) Hypokalemia Current Visit: No Status: Resolved Assessment & Plan: - K+ 3.0- replaced in ER 06/14/23 - K+ 4.3- resolved Code(s): E87.6 - HYPOKALEMIA (9) Acute on chronic renal failure Current Visit: Yes Status: Acute Assessment & Plan: - 2:2 N/V/D -IVF - Creat 1.43, BL 1.10 - GFR 39.5, BL - BUN 32 - trend labs 06/14 - improved- near baseline 06/15 - at baseline Code(s): N17.9 - ACUTE KIDNEY FAILURE, UNSPECIFIED; N18.9 - CHRONIC KIDNEY DISEASE, UNSPECIFIED (10) Positive blood culture Current Visit: Yes Status: Acute Assessment & Plan: - Pt had 1 + blood culture with gram + rods- appears to be contamination - Will continue to follow for sensitivity - Antibiotics started last night Vancomycin and Merrem. 06/15 - the 1 BC sensitivity back and showed it was contimated- antibiotics stopped Code(s): R78.81 - BACTEREMIA (11) Sinus pressure Current Visit: Yes Status: Acute Assessment & Plan: - flonase Code(s): J34.89 - OTHER SPECIFIED DISORDERS OF NOSE AND NASAL SINUSES (12) Acute urinary retention Current Visit: Yes Status: Acute Assessment & Plan: - Gibson placed last night with 350 out 06/14 - DC gibson per pt request- continue to monitor OP VTE: SCD's PPI: Pantoprazole Next of Kin: D/C plan: tomorrow Code(s): R33.8 - OTHER RETENTION OF URINE
--- NOTE | 2023-06-15 14:24 | PCM.DS ---
Discharge Summary Date of Admission: 06/13/23 12:15 Date of Discharge: 06/15/23 Admitting Physician: FADIA COUGHLIN MD Primary Care Provider: PRICE WOLF Allergies Allergies celecoxib [From Celebrex] Allergy (Verified 06/13/23 06:04) cephalexin [Cephalexin] Allergy (Verified 06/13/23 06:04) cephalexin monohydrate [From Keflex] Allergy (Verified 06/13/23 06:04) ciprofloxacin [From Cipro] Allergy (Verified 06/13/23 06:04) ciprofloxacin HCl [From Cipro] Allergy (Verified 06/13/23 06:04) ibuprofen [From Motrin] Allergy (Verified 06/13/23 06:04) ketoprofen [From Oruvail] Allergy (Verified 06/13/23 06:04) ketorolac tromethamine [From Toradol] Allergy (Verified 06/13/23 06:04) levofloxacin [From Levaquin] Allergy (Verified 06/13/23 06:04) meloxicam [From Mobic] Allergy (Verified 06/13/23 06:04) methadone [Methadone] Allergy (Verified 06/13/23 06:04) methocarbamol [From Robaxin] Allergy (Verified 06/13/23 06:04) Penicillins Allergy (Verified 06/13/23 06:04) Sulfa (Sulfonamide Antibiotics) [Sulfa(Sulfonamide Antibiotics)] Allergy (Verified 06/13/23 06:04) Hospital Summary - Hospital Course Hospital Course: 06/13/23 is a 63 year old female. Patient has multiple medical issues including arrhythmias, coronary artery disease, pacemaker, [place] rheumatoid arthritis, fibromyalgia, gastroesophageal reflux disease, and anxiety. Patient has had a cholecystectomy and appendectomy in the past. This is a morbidly obese 63-year-old white female patient of Dr. French Wolf who also sees automatic thread winder Dr. White and also sees a inspector general. Patient states that she has been "sick" for 3 weeks. Her symptoms have worsened in the last 3 days. Patient has generalized weakness. She has had vomiting and generalized abdominal pain. She has chronic diarrhea, denies blood or mucus in stools. She describes the abdominal pain as intermittent achiness from vomiting this morning. CT abd pelvis showed no acute findings. Lactic acid elevated in ER IV fluids gave- will recheck. Continue IV fluids. Add zofran for nausea. She has acute on chronic renal failure. She denies CP, SOB. 06/14/23 Pt resting in bed. She had some N/V overnight. She is feeling better this morning and denies nausea. She was able to eat some jello this morning without vomiting. HORACIO improved. Hypokalemia resolved. Lactic acidosis resolved. She was having difficulty urinating last night and a gibson was placed with 350 out. She is requesting this to be removed today. D/C order placed. Leukocytosis has improved. one blood culture came back with gram negative rods. The other is negative. Appears to be contamination but Vancomycin and Merrem started by night worker physician. Stool culture and c-dif sent for further eval of chronic diarrhea. Pt denies CP, SOB, abd. pain, N/V today. Pt has no insurance so if she needs to be sent home on meds they will need to be affordable. Case management aware. 06/15/23 Pt resting in bed. She explains she she has been up since 2 am and is tired. She is c/o right ear being clogged. Used otoscope to evaluate and there is no obstruction. Started Flonase for sxs. The one blood culture that was + was shown to be contaminated. Stopped antibiotics. She is feeling better but still weak. Goal is for her to work with PT and sit up in the chair today. She denies CP, SOB, Abd. pain, N/V/D. Pt explained she is ready to leave today. Her sons are willing to help her get into her home. - Vitals & Intake/Output Vital Signs: Vital Signs Temperature 96.3 F 06/15/23 11:49 Pulse Rate 61 06/15/23 11:49 Respiratory Rate 16 06/15/23 11:49 Blood Pressure 133/60 06/15/23 11:49 O2 Sat by Pulse Oximetry 92 L 06/15/23 13:00 Intake & Output: Intake & Output 06/13/23 06/14/23 06/15/23 06/16/23 11:59 11:59 11:59 11:59 Intake Total 2921 280 120 Output Total 625 450 Balance 2296 -170 120 Weight 77.9 kg 76.3 kg - Lab Result Diagrams: 06/15/23 04:57 06/15/23 04:57 Lab Results-Last 24 Hrs: Lab Results-Last 24 Hours 06/15/23 06/15/23 Range/Units 04:57 04:57 WBC 8.7 (4.0-10.5) x10^3/uL RBC 4.17 (4.1-5.4) x10^6/uL Hgb 10.8 L (12.0-16.0) g/dL Hct 38.2 (35-47) % MCV 91.6 (78-100) fL MCH 25.9 L (26-32) pg MCHC 28.3 L (32-36) g/dL RDW 16.6 H (11.5-14.0) % Plt Count 248 (150-450) x10^3/uL MPV 10.1 (7.5-11.0) fL Sodium 140 (137-145) mmol/L Potassium 3.6 (3.5-5.1) mmol/L Chloride 109 H (98-107) mmol/L Carbon Dioxide 20 L (22-30) mmol/L Anion Gap 15.6 H (5-15) MEQ/L BUN 13 (7-17) mg/dL Creatinine 0.88 (0.52-1.04) mg/dL Estimated GFR > 60.0 ML/MIN Glucose 108 H (74-106) mg/dL Calcium 7.5 L (8.4-10.2) mg/dL Total Bilirubin 0.50 (0.2-1.3) mg/dL AST 19 (14-36) U/L ALT 13 (0-35) U/L Alkaline Phosphatase 87 (38-126) U/L Serum Total Protein 5.4 L (6.3-8.2) g/dL Albumin 3.0 L (3.5-5.0) g/dL Slides for Path Review YES Micro Results-Entire Visit: Microbiology 06/14/23 03:45 Urine Culture - Final Urine, Indwelling Catheter NO GROWTH 06/13/23 07:04 Blood Culture - Final Blood Coagulase Negative Staph. Possible Contaminant. Clinical judgement required. No further workup performed. 06/13/23 07:25 Blood Culture Gram Stain - Preliminary Blood Blood Culture - Preliminary GRAM NEGATIVE ID AND SENSITIVITY PENDING 06/14/23 Unknown Stool Culture Result 1 - Final Stool Not Reportable Stool Culture Result 2 - Final Not Reportable Stool Culture Result 3 - Final Not Reportable Stool Culture Result 4 - Final Not Reportable Stool Culture Organism Suscept - Final Not Reportable Campylobacter Result 1 - Final Not Reportable Campylobacter Result 2 - Final Not Reportable Campylobactor Result 3 - Final Not Reportable Campylobacter Result 4 - Final Not Reportable Campylobactor Susceptibility - Final Not Reportable C. difficile Toxin B Result 1 - Final Not Reportable C. difficile Toxin B Result 2 - Final Not Reportable C. difficile Toxin B Result 3 - Final Not Reportable C. difficile Toxin B Result 4 - Final Not Reportable Antimicrobic Susceptibility - Final Not Reportable - Procedures and Test Procedures and Tests throughout Hospitalization: Therapy Orders & Screens 06/14/23 08:34 PT Eval & Treat ( Order) ONCE Reason for Eval:: weakness r/t n/v Diagnosis: N/V Discharge Exam General Appearance: no apparent distress, alert Neurologic Exam: alert, oriented x 3, cooperative, normal mood/affect, nml cereb ellar function, sensation nml, No motor deficits Eye Exam: PERRL, EOMI, eyes nml inspection Ears, Nose, Throat Exam: normal ENT inspection, pharynx normal, moist mucous membranes Neck Exam: normal inspection, non-tender, supple, full range of motion Respiratory Exam: normal breath sounds, lungs clear, No respiratory distress Cardiovascular Exam: regular rate/rhythm, normal heart sounds Gastrointestinal/Abdomen Exam: soft, No tenderness, No mass Pelvic Exam: deferred Rectal Exam: deferred Back Exam: normal inspection, normal range of motion, No CVA tenderness, No vertebral tenderness Extremity Exam: normal inspection, normal range of motion Skin Exam: normal color, warm, dry Final Diagnosis/Problem List - Final Discharge Diagnosis/Problem (1) Lactic acidosis Current Visit: Yes Status: Acute Code(s): E87.20 - ACIDOSIS, UNSPECIFIED (2) Nausea & vomiting Current Visit: Yes Status: Acute Code(s): R11.2 - NAUSEA WITH VOMITING, UNSPECIFIED (3) Dehydration Current Visit: Yes Status: Acute Code(s): E86.0 - DEHYDRATION (4) Chronic diarrhea Current Visit: Yes Status: Acute Code(s): K52.9 - NONINFECTIVE GASTROENTERITIS AND COLITIS, UNSPECIFIED (5) Anxiety Current Visit: Yes Status: Acute Code(s): F41.9 - ANXIETY DISORDER, UNSPECIFIED (6) Abdominal pain Current Visit: Yes Status: Acute Code(s): R10.9 - UNSPECIFIED ABDOMINAL PAIN (7) Leukocytosis Current Visit: Yes Status: Acute Code(s): D72.829 - ELEVATED WHITE BLOOD CELL COUNT, UNSPECIFIED (8) Hypokalemia Current Visit: No Status: Resolved Code(s): E87.6 - HYPOKALEMIA (9) Acute on chronic renal failure Current Visit: Yes Status: Acute Code(s): N17.9 - ACUTE KIDNEY FAILURE, UNSPECIFIED; N18.9 - CHRONIC KIDNEY DISEASE, UNSPECIFIED (10) Positive blood culture Current Visit: Yes Status: Acute Code(s): R78.81 - BACTEREMIA (11) Sinus pressure Current Visit: Yes Status: Acute Code(s): J34.89 - OTHER SPECIFIED DISORDERS OF NOSE AND NASAL SINUSES (12) Acute urinary retention Current Visit: Yes Status: Acute Assessment & Plan: (1) Lactic acidosis Current Visit: Yes Status: Acute Assessment & Plan: - R/T N/V - IV fluids - LA @ 0731 3.4 - LA @ 0944 2.6 - LA @ 1249 1.9- resolved Code(s): E87.20 - ACIDOSIS, UNSPECIFIED (2) Nausea & vomiting Current Visit: Yes Status: Acute Assessment & Plan: - Zofran PRN - Clear liquid diet 06/15 - resolved Code(s): R11.2 - NAUSEA WITH VOMITING, UNSPECIFIED (3) Dehydration Current Visit: Yes Status: Acute Assessment & Plan: - NS @ 150ml/hr 06/15 - Pt eating and drinking well- stopped IV fluids Code(s): E86.0 - DEHYDRATION (4) Chronic diarrhea Current Visit: Yes Status: Acute Assessment & Plan: - Will need to f/u OP for Colonoscopy - Stool culture, C-diff testing- pending - she has not had any diarrhea since admission Code(s): K52.9 - NONINFECTIVE GASTROENTERITIS AND COLITIS, UNSPECIFIED (5) Anxiety Current Visit: Yes Status: Acute Assessment & Plan: -Cont home med Code(s): F41.9 - ANXIETY DISORDER, UNSPECIFIED (6) Abdominal pain Current Visit: Yes Status: Acute Assessment & Plan: -Pt explained this is from vomiting - CT abd/pelvis: 06/13 1. Respiration artifact. 2. Again chronic findings including benign left lower lobe noncalcified micronodule, bilateral renal cysts, fatty liver, chronic bony findings, and arteriosclerotic disease. 3. No new or acute intra-abdominal/pelvic abnormalities on this noncontrast exam. - Tylenol for pain Code(s): R10.9 - UNSPECIFIED ABDOMINAL PAIN (7) Leukocytosis Current Visit: Yes Status: Acute Assessment & Plan: - WBC 17.3- Trend - may be acute reaction 06/14 - WBC 12.3- improved 06/15 - resolved Code(s): D72.829 - ELEVATED WHITE BLOOD CELL COUNT, UNSPECIFIED (8) Hypokalemia Current Visit: No Status: Resolved Assessment & Plan: - K+ 3.0- replaced in ER 06/14/23 - K+ 4.3- resolved Code(s): E87.6 - HYPOKALEMIA (9) Acute on chronic renal failure Current Visit: Yes Status: Acute Assessment & Plan: - 2:2 N/V/D -IVF - Creat 1.43, BL 1.10 - GFR 39.5, BL - BUN 32 - trend labs 06/14 - improved- near baseline 06/15 - at baseline Code(s): N17.9 - ACUTE KIDNEY FAILURE, UNSPECIFIED; N18.9 - CHRONIC KIDNEY DISEASE, UNSPECIFIED (10) Positive blood culture Current Visit: Yes Status: Acute Assessment & Plan: - Pt had 1 + blood culture with gram + rods- appears to be contamination - Will continue to follow for sensitivity - Antibiotics started last night Vancomycin and Merrem. 06/15 - the 1 BC sensitivity back and showed it was contimated- antibiotics stopped Code(s): R78.81 - BACTEREMIA (11) Sinus pressure Current Visit: Yes Status: Acute Assessment & Plan: - flonase Code(s): J34.89 - OTHER SPECIFIED DISORDERS OF NOSE AND NASAL SINUSES (12) Acute urinary retention Current Visit: Yes Status: Acute Assessment & Plan: - Gibson placed last night with 350 out 06/14 - DC gibson per pt request- continue to monitor 06/15 - resolved Code(s): R33.8 - OTHER RETENTION OF URINE - Discharge Discharge Date: 06/15/23 Disposition: Home, Self-Care Condition: Stable Prescriptions: Continue Gabapentin 400 mg PO QID Metoprolol Tartrate 25 mg [Lopressor 25MG Tab] 25 mg PO UD PRN PRN Reason: tachycardia Cyclobenzaprine HCl 10 mg [Cyclobenzaprine 10 MG] 10 mg PO TID ALPRAZolam 1 MG [Xanax 1 mg] 1 mg PO Q6HPRN PRN PRN Reason: Anxiety Trazodone HCl 100 mg PO QHS Atorvastatin Calcium 20 mg PO QHS Additional Instructions: F/U WITH INSURANCE NAVIGATOR VALERIE TAVARES @ [phone] EXT [phone] (BY APPT.) Follow up with: PRICE WOLF [Primary Care Provider] - 06/22/23 2:30 pm
[2023-06-16] MEDS ORDERED: Flonase NASAL NS SCH (10:00)
[2023-06-17] MEDS ORDERED: TROUGH DRUG LEVELS IJ ONE (05:30)
== END 2023-06-15 15:05 | disposition home or self-care (01) ==
LOC: ED 05:46 → MED SURG 12:15
PROVIDERS: ADMIT Internal Medicine; ATTEND Internal Medicine
DX: E87.20 Acidosis, unspecified (principal); R11.2 Nausea with vomiting, unspecified; E86.0 Dehydration; K52.9 Noninfective gastroenteritis and colitis, unspecified; F41.9 Anxiety disorder, unspecified; R10.9 Unspecified abdominal pain; D72.829 Elevated white blood cell count, unspecified; E87.6 Hypokalemia; N17.9 Acute kidney failure, unspecified; I12.9 Hypertensive chronic kidney disease with stage 1 through stage 4 chronic kidney disease, or unspecified chronic kidney disease; N18.9 Chronic kidney disease, unspecified; R78.81 Bacteremia; J34.89 Other specified disorders of nose and nasal sinuses; R33.9 Retention of urine, unspecified; I25.10 Atherosclerotic heart disease of native coronary artery without angina pectoris; E66.9 Obesity, unspecified; Z79.899 Other long term (current) drug therapy; Z20.828 Contact with and (suspected) exposure to other viral communicable diseases
CPT/HCPCS: 0241U; 36000; 36140; 36415; 74176; 76942; 80053; 81001; 82150; 83605; 83690; 83735; 84132; 84484; 85025; 85027; 86308; 87040; 87077; 87086; 93005; 93268; 96360; 96365; 96366; 96374; 96375; 97161; 99285; G0378; Q3014; 36410; J2405; J3370; J3475; A9270-GY